=== PATIENT | female | born 1955 | race Caucasian/White ===

== ENCOUNTER 2017-02-26 05:20 | Inpatient (IN) | payer OTHER ==
[2017-02-13 13:30] VITALS: BMI 33.0
--- NOTE | 2017-02-13 14:21 | PAT Medication Instructions ---
Service Date February 13, 2017. Current Home Medication List Aspirin (Aspirin Ec), 81 MG PO QAM Atorvastatin (Lipitor), 40 MG PO QAM Cyanocobalamin (Cyanocobalamin), MONTHLY Ergocalciferol (Vitamin D 72045 Unit), 50,000 UNIT PO 2XWK Gabapentin (Neurontin), 300 MG PO TID Lansoprazole (Prevacid), 15 MG PO QAM Lisinopril (Zestril), 40 MG PO QAM Magnesium Gluconate (Magnesium Gluconate), 1 TAB PO BIDM Meloxicam (Meloxicam), 1 TAB PO QAM Metformin Ext Rel (Glucophage Ext Rel), 1 TAB PO BID Metoprolol Succinate (Toprol Xl), 50 MG PO QAM Medication Instructions For Your Scheduled Surgery Cyanocobalamin (Cyanocobalamin), MONTHLY (continue as usual) - Hold the following medications 7 days prior to surgery per surgeon instructions: Meloxicam (Meloxicam), 1 TAB PO QAM Aspirin (Aspirin Ec), 81 MG PO QAM - Hold the following medications 48 hours prior to surgery: Metformin Ext Rel (Glucophage Ext Rel), 1 TAB PO BID - Hold the following medications the morning of surgery: Magnesium Gluconate (Magnesium Gluconate), 1 TAB PO BID Lisinopril (Zestril), 40 MG PO QAM Ergocalciferol (Vitamin D 59316 Unit), 50,000 UNIT PO 2XWK - Take the following medications the morning of surgery with a sip of water: Metoprolol Succinate (Toprol Xl), 50 MG PO QAM Gabapentin (Neurontin), 300 MG PO TID Lansoprazole (Prevacid), 15 MG PO QAM Atorvastatin (Lipitor), 40 MG PO QAM - Take the following medications as scheduled the night before surgery: Magnesium Gluconate (Magnesium Gluconate), 1 TAB PO BID Gabapentin (Neurontin), 300 MG PO TID If you have any questions please call us at [phone] or [phone] ( [place]) or [phone]
--- NOTE | 2017-02-13 15:00 | DIAGNOSTIC IMAGING REPORT ---
CHEST PREADMISSION(PA/LAT) HISTORY: Preop. COMPARISON: None. FINDINGS: The lungs are clear. The heart is top normal in size. S-shaped scoliosis of the thoracolumbar spine. There is a single left-sided thoracolumbar spinal troy. No pleural effusions. No pneumothorax. IMPRESSION: No acute process. Electronically signed by: Juancarlos Shcultz M.D. 02/13/2017 2:59 PM Dictated Date/Time: 02/13/2017 2:58 PM
[2017-02-13 15:38] LABS: BASO % 0.8 %; BASO ABS # 0.07 K/uL (0-0.2); COMPLETE YES; EOS % 7.8 %; HEMATOCRIT 37.6 % (37-47); IG% 0.7 %; LYMPH % 22.9 %; LYMPH ABS # 1.96 K/uL (1.2-3.4); MEAN CELL VOLUME 94.5 fL (80-100); MEAN CORPUSCULAR HEMOGLOBIN 32.2 pg (25-34); MONO % 4.9 %; NEUT % 62.9 %; PLATELET COUNT 259 K/uL (130-400); RED BLOOD COUNT 3.98 M/uL (4.2-5.4); WHITE BLOOD COUNT 8.57 K/uL (4.8-10.8)
[2017-02-13 15:41] LABS: MANUAL MICROSCOPIC REQUIRED? NO; REVIEW REQ? NO; URINE APPEARANCE CLEAR (CLEAR); URINE BILIRUBIN NEG (NEG); URINE COLOR YELLOW; URINE NITRITE NEG (NEG); URINE SPECIFIC GRAVITY 1.021 (1.000-1.030); UROBILINOGEN NEG (NEG)
[2017-02-13 16:28] LABS: CALCIUM 9.3 mg/dl (8.5-10.1); CREATININE 0.71 mg/dl (0.60-1.20); POTASSIUM 4.7 mmol/L (3.5-5.1)
[~2017-02-26] VITALS: Ht 160 cm; Wt 85.7 kg
[2017-02-26] VITALS (20 sets, daily range): BP systolic 126–165; BP diastolic 72–94; PULSE 75–97; TEMP 36.1–36.8; O2SAT 93–100; Ht 160 cm; Wt 85.7 kg
[~2017-02-26 05:20] MED LIST: ASPI81TA28 PO; ATOR-24 PO; CYNI1000; ERGO500037 PO; GABA-113 PO; LANS15CA6 PO; LISI40TA PO; MAGN500T3 PO; MELO15TA4 PO; METFTAB PO; METO-217 PO
[2017-02-26] MEDS ORDERED: CEFAZOLIN 2000 MG/60 ML D5W IV SCH (06:00)
[2017-02-26] MEDS ORDERED: LACTATED RINGER'S 1000ML 1,000 ML IV SCH (06:00)
[2017-02-26] MEDS ORDERED: CeleBREX 200 MG CAP PO SCH (06:00)
[2017-02-26] MEDS ORDERED: PREGABALIN 75 MG CAP PO SCH (06:00)
[2017-02-26] MEDS ORDERED: MIDAZOLAM HCL 1 MG/ML 2ML VIAL ONE (06:36)
[2017-02-26] MEDS ORDERED: FENTANYL CITRATE INJ 50 MCG/1 ML 2 ML VIAL ONE ×3 (06:36→08:09)
[2017-02-26] MEDS ORDERED: THROMBIN 5000 UNITS KIT ONE (06:54)
[2017-02-26] MEDS ORDERED: BACITRACIN 50000 UNIT VIAL ONE (06:54)
--- NOTE | 2017-02-26 07:27 | History and Physical ---
History & Physical Date February 26, 2017. Chief Complaint neck and R arm pain History of Present Illness The patient is a 62 year old female with complaints of above that are chronic who also reports weakness and numbness of the right hand. Rarely has L arm symptoms. She has failed to respond to extensive non op management. Her MRI shows foraminal stenosis and DDD greatest at C5-6 and 6-7. She has limited cognitive function and is assisted in decisions by family caregiver who has accompanied her to visits. Past Medical/Surgical History neck pain COPD diabetes type II Guy's Breast CA s/p mastectomy Hx of scoliosis fusion in youth HTN learning disability Carotid stenosis tonsillectomy Hyster hernia repair osteoporosis Additional History Hepatic Disease: No Endocrine Disorder: No Kidney Disease: No Hypertension: Yes Heart Disease: Yes (cleared by cardiology) Bleeding Tendencies: No Infectious Diseases: No Allergies Uncoded Allergies: ENDIVE (Allergy, Severe, SWELLING OF EYES, 02/13/17) Home Medications Scheduled Aspirin (Aspirin Ec), 81 MG PO QAM Atorvastatin (Lipitor), 40 MG PO QAM Cyanocobalamin (Cyanocobalamin), MONTHLY Ergocalciferol (Vitamin D 01385 Unit), 50,000 UNIT PO 2XWK Gabapentin (Neurontin), 300 MG PO TID Lansoprazole (Prevacid), 15 MG PO QAM Lisinopril (Zestril), 40 MG PO QAM Magnesium Gluconate (Magnesium Gluconate), 1 TAB PO BIDM Meloxicam (Meloxicam), 1 TAB PO QAM Metformin Ext Rel (Glucophage Ext Rel), 1 TAB PO BID Metoprolol Succinate (Toprol Xl), 50 MG PO QAM Physical Examination Skin: warm/dry Eyes: normal inspection ENT: normal ENT inspection Head: normocephalic, atraumatic Neck: supple, no adenopathy, trachea midline Respiratory/Chest: lungs clear, no respiratory distress Cardiovascular: regular rate, rhythm Extremities: normal inspection, normal range of motion Neurologic/Psych: no motor/sensory deficits (except for slight weakness in press box custodian and wrist extension on right and decreased right hand sensation to light touch), alert, normal reflexes, oriented x 3 Diagnosis Cervical stenosis C5-7 Plan of Treatment C5-7 ACDF
[2017-02-26] MEDS ORDERED: HYDROmorphone INJ 2 MG/ML SYR/VIAL IV PRN (07:45)
[2017-02-26] MEDS ORDERED: PHENYLEPHRINE 100MCG/ML 5ML SYR IV PRN (07:45)
[2017-02-26] MEDS ORDERED: ONDANSETRON INJ 2 MG/ML 2 ML VIAL IV PRN ×2 (07:45→09:45)
[2017-02-26] MEDS ORDERED: EpHEDrine SULFATE INJ 50 MG/ML AMP IV PRN (07:45)
[2017-02-26] MEDS ORDERED: ATROPINE SULFATE 0.1 MG/ML 5ML SYR IV PRN (07:45)
[2017-02-26] MEDS ORDERED: HYDROmorphone INJ 2 MG/ML SYR/VIAL ONE (07:55)
[2017-02-26] MEDS ORDERED: ROCURONIUM BROMIDE 10 MG/ML 5 ML VIAL ONE (08:10)
[2017-02-26] MEDS ORDERED: PROPOFOL IV EMULSION 10 MG/ML 20 ML VIAL IV ONE (08:10)
[2017-02-26] MEDS ORDERED: PHENYLEPHRINE 100MCG/ML 5ML SYR ONE (08:10)
[2017-02-26] MEDS ORDERED: DEXAMETHASONE SOD INJ 4 MG/ML VIAL ONE (08:10)
[2017-02-26] MEDS ORDERED: ONDANSETRON INJ 2 MG/ML 2 ML VIAL ONE ×2 (08:10→09:25)
[2017-02-26] MEDS ORDERED: LIDOCAINE HCL 2% 2 ML VIAL (20MG/ML) ONE (08:10)
[2017-02-26] MEDS ORDERED: LABETALOL HCL IV 5 MG/ML 20ML IV ONE (08:23)
[2017-02-26] MEDS ORDERED: NEOSTIGMINE METHYLSULFATE 1 MG/ML 10ML VIAL ONE (09:25)
[2017-02-26] MEDS ORDERED: GLYCOPYRROLATE INJ 0.2 MG/ML VIAL ONE (09:25)
--- NOTE | 2017-02-26 09:31 | DIAGNOSTIC IMAGING REPORT ---
Cervical SPINE, INTRAOPERATIVE FLUOROSCOPY HISTORY: C5-C7 discectomy and fusion. FLUOROSCOPY TIME: 12 seconds. FINDINGS: Intraoperative fluoroscopy was provided for the cervical spine. 3 fluoroscopic spot images were obtained. Anterior cervical discectomy and fusion at C5-C6 and C6-C7. IMPRESSION: Fluoroscopy provided for a ACDF C5-C7. Electronically signed by: Juancarlos Schultz M.D. 02/26/2017 9:30 AM Dictated Date/Time: 02/26/2017 9:29 AM
--- NOTE | 2017-02-26 09:40 | [facility] Post Operative Brief Note ---
Immediate Operative Summary Operative Date February 26, 2017. Pre-Operative Diagnosis Spinal Stenosis Post-Operative Diagnosis Same as preop Procedure(s) Performed C5-7 Anterior Cervical Discectomy and Fusion, Use of LDR Surgeon Dr. Jerry Larsen Nurse Practitioner Manager Surgeon(s) Debora Lucero PAC Estimated Blood Loss 20ml Findings dict Specimens None
[2017-02-26] MEDS ORDERED: LORAZEPAM 0.5 MG TAB PO PRN (09:45)
[2017-02-26] MEDS ORDERED: RACEPINEPHRINE 2.25% NEBU SOLN 0.5 ML VIAL INH PRN (09:45)
[2017-02-26] MEDS ORDERED: HYDROmorphone INJ 1 MG/ML SYR IV PRN (09:45)
[2017-02-26] MEDS ORDERED: ACETAMINOPHEN IV 1,000 MG in EMPTY BAG 0 ML IV PRN (09:45)
[2017-02-26] MEDS ORDERED: NALOXONE HCL 0.4 MG/1 ML VIAL/CARP IV PRN (09:45)
[2017-02-26] MEDS ORDERED: DEXAMETHASONE INJ 8 MG in SYRINGE 0 ML IV PRN (09:45)
[2017-02-26] MEDS ORDERED: LORAZEPAM INJ 0.5 MG in SYRINGE 0.75 ML IV PRN (09:45)
--- NOTE | 2017-02-26 10:29 | Anesthesiology Progress Note ---
Anesthesia Post Op Note Date & Time February 26, 2017 at 10:28 Vital Signs Pain Intensity: 4 Vital Signs Past 12 Hours Date Time Temp Pulse Resp B/P Pulse Ox O2 Delivery O2 Flow Rate FiO2 02/26/17 10:20 36.3 91 15 140/71 94 Nasal Cannula 4 02/26/17 10:10 89 16 170/71 95 Nasal Cannula 4 02/26/17 10:00 85 16 169/68 94 Nasal Cannula 4 02/26/17 09:50 78 16 167/81 94 Nasal Cannula 4 02/26/17 09:40 79 16 169/73 98 Mask 10 02/26/17 09:30 84 16 170/88 98 Mask 10 02/26/17 09:24 36.5 95 16 174/87 97 Mask 10 02/26/17 05:56 36.8 97 22 128/84 98 Room Air Notes Mental Status: alert / awake / arousable, participated in evaluation Pt Amnestic to Procedure: Yes Nausea / Vomiting: adequately controlled Pain: adequately controlled Airway Patency, RR, SpO2: stable & adequate BP & HR: stable & adequate Hydration State: stable & adequate Anesthetic Complications: no major complications apparent No airway edema and no apparent bleeding at time of discharge.
--- NOTE | 2017-02-26 12:04 | Medical Consult ---
Consultation Date of Consultation: February 26, 2017. Attending Physician: Noel Larsen M.D. Reason for Consultation: Medical Management History of Present Illness 62 y/o F who was admitted this morning after undergoing C5-C7 decompression/ fusion with Dr. Larsen. Pt is still a bit groggy from anesthesia and states she doesn't feel well due to this. She is nauseated, no emesis though. She feels like she cannot get a good breath due to her incision site. Pt's last dose of metformin was yesterday AM due to her surgery today. She is not on insulin, although a friend with her states that her PCP has recently increased her metformin. Pt usually runs around 150-180 BS per her friend. Pt denies fever, chest pain, abd pain, c/d, LE pain or swelling. ROS as noted above, otherwise neg. Past Medical/Surgical History DM COPD HTN B12 deficiency HLD Guy's esophagus Carotid stenosis Hx of breast ca s/p mastectomy Osteoporosis Social History Smoking Status: Never Smoker Alcohol Use: none Drug Use: none Allergies Uncoded Allergies: ENDIVE (Allergy, Severe, SWELLING OF EYES, 02/13/17) Current Inpatient Medications Current Inpatient Medications Medications (Trade) Dose Ordered Sig/Meeta Route Start Time Stop Time Status Last Admin Dose Admin Lactated Ringer's 1,000 ml @ 15 mls/hr Q24H IV 02/26/17 06:00 02/27/17 05:59 02/26/17 06:14 15 MLS/HR Cefazolin Sodium (Ancef 2000mg/60 ml D5W) 60 ml @ 100 mls/hr PREOP IV 02/26/17 06:00 02/26/17 18:00 02/26/17 07:28 100 MLS/HR Celecoxib (CeleBREX CAP) 200 mg PREOP PO 02/26/17 06:00 02/26/17 18:00 02/26/17 06:12 200 MG Pregabalin (Lyrica Cap) 75 mg PREOP PO 02/26/17 06:00 02/26/17 18:00 02/26/17 06:12 75 MG Hydromorphone HCl (Dilaudid Inj) 0.5 mg Q5M PRN IV 02/26/17 07:45 02/26/17 12:45 Ondansetron HCl (Zofran Inj) 4 mg ONE PRN IV 02/26/17 07:45 02/26/17 12:45 Ephedrine Sulfate (EpHEDrine SULFATE INJ) 5 mg Q5M PRN IV 02/26/17 07:45 02/26/17 12:45 Atropine Sulfate (Atropine Sulfate 0.1MG/Ml Inj) 0.5 mg Q1M PRN IV 02/26/17 07:45 02/26/17 12:45 Phenylephrine HCl (Mack-Synephrine 500MCG/5ML Syr) 100 mcg Q5M PRN IV 02/26/17 07:45 02/26/17 12:45 Aspirin (Ecotrin Tab) 81 mg QAM PO 02/27/17 09:00 03/29/17 08:59 UNV Atorvastatin Calcium (Lipitor Tab) 40 mg QAM PO 02/27/17 09:00 03/29/17 08:59 UNV Gabapentin (Neurontin Cap) 300 mg TID PO 02/26/17 14:00 03/28/17 13:59 UNV Lisinopril (Zestril Tab) 40 mg QAM PO 02/27/17 09:00 03/29/17 08:59 UNV Metoprolol Succinate (Toprol Xl Tab) 50 mg QAM PO 02/27/17 09:00 03/29/17 08:59 UNV Pantoprazole Sodium (Protonix Tab) 40 mg QAM PO 02/27/17 09:00 03/29/17 08:59 UNV Racepinephrine 0.5 ml 0.5 ml ONE PRN INH 02/26/17 09:45 02/26/17 23:59 Acetaminophen/ Empty Bag (Ofirmev Iv/ Empty Iv Bag 100ml) 100 ml @ 400 mls/hr Q8H PRN IV 02/26/17 09:45 03/28/17 09:44 Hydromorphone HCl (Dilaudid Inj) 1 mg Q3H PRN IV 02/26/17 09:45 03/12/17 09:44 Ondansetron HCl 4 mg 4 mg Q6 PRN IV 02/26/17 09:45 03/28/17 09:44 Cefazolin Sodium/ Dextrose (Ancef Iv/D5 50ml) 55 ml @ 100 mls/hr Q8H IV 02/26/17 16:00 02/27/17 08:32 UNV Lorazepam 0.5 mg 0.5 mg Q8H PRN PO 02/26/17 09:45 03/28/17 09:44 Lorazepam 0.5 mg/ Syringe 1 ml @ 1 mls/min Q8H PRN IV 02/26/17 09:45 03/28/17 09:44 Sodium Chloride (Nss 1000ml) 1,000 ml @ 80 mls/hr [id number] IV 02/26/17 09:40 02/27/17 09:39 UNV Oxycodone HCl 5mg for pain scale 4-6 1... Q4H PRN PO 02/26/17 09:45 03/12/17 09:44 Dexamethasone Sodium Phosphate/ Syringe (Decadron Inj/ Syringe) 2 ml @ 1 mls/min ONE PRN IV 02/26/17 09:45 02/26/17 23:59 Naloxone HCl (Narcan Inj) 0.1 mg Q5M PRN IV 02/26/17 09:45 03/28/17 09:44 Physical Exam Date Time Temp Pulse Resp B/P Pulse Ox O2 Delivery O2 Flow Rate FiO2 02/26/17 11:30 36.3 92 16 162/87 97 Nasal Cannula 2.0 02/26/17 11:30 36.3 16 162/87 97 Nasal Cannula 2.0 02/26/17 11:30 92 16 162/87 97 2.0 02/26/17 11:00 36.5 81 16 126/82 95 Nasal Cannula 4.0 Humidified Oxygen 02/26/17 11:00 Nasal Cannula 4.0 02/26/17 11:00 Nasal Cannula 4.0 Humidified Oxygen 02/26/17 10:40 36.3 93 16 168/82 95 Nasal Cannula 4 02/26/17 10:30 36.3 85 15 165/73 94 Nasal Cannula 4 02/26/17 10:20 36.3 91 15 140/71 94 Nasal Cannula 4 02/26/17 10:10 89 16 170/71 95 Nasal Cannula 4 02/26/17 10:00 85 16 169/68 94 Nasal Cannula 4 02/26/17 09:50 78 16 167/81 94 Nasal Cannula 4 02/26/17 09:40 79 16 169/73 98 Mask 10 02/26/17 09:30 84 16 170/88 98 Mask 10 02/26/17 09:24 36.5 95 16 174/87 97 Mask 10 02/26/17 05:56 36.8 97 22 128/84 98 Room Air General Appearance: WD/WN, no apparent distress Head: normocephalic, atraumatic Respiratory/Chest: normal breath sounds, no respiratory distress Cardiovascular: regular rate, rhythm, no edema Abdomen/GI: non tender, soft Extremities/Musculoskelatal: no calf tenderness, no pedal edema Neurologic/Psych: alert (but groggy), + pertinent finding (answers all questions appropriately) Skin: normal color, warm/dry Laboratory Results Last 24 Hours Test 02/26/17 06:11 02/26/17 09:26 02/26/17 11:35 Bedside Glucose 141 mg/dl 179 mg/dl 280 mg/dl Assessment & Plan 62 y/o F who was admitted on 02/26 after undergoing C5-C7 decompression/fusion with Dr. Larsen. Neck pain: fusion as above Diet, DVT proph as per ortho DM: BS elevated to 260 post-op Likely related to holding metformin for OR today Pt also received decadron intra-op Start on SSI PRN A1c pending HTN: stable, continue home meds COPD: stable, continue home meds Hyperlipidemia: continue home meds
[2017-02-26] MEDS ORDERED: GLUCOSE 10 TABS/TUBE PO PRN (12:15)
[2017-02-26] MEDS ORDERED: DEXTROSE 50% 50 ML SYR IV PRN (12:15)
[2017-02-26] MEDS ORDERED: GLUCAGON FOR INJ 1 MG VIAL SQ PRN (12:15)
[2017-02-26] MEDS ORDERED: GLUCOSE 40% GEL 15 GM TUBE PO PRN (12:15)
[2017-02-26] MEDS: SODIUM CHLORIDE 0.9% 1000ML 1,000 ML IV SCH ×2 (13:11→21:33)
[2017-02-26] MEDS: GABAPENTIN 300 MG CAP PO SCH ×2 (13:12→21:33)
[2017-02-26] MEDS: INSULIN ASPART 100 UNITS/ML 3 ML PEN SC SCH ×3 (13:17→21:41)
[2017-02-26] MEDS: OXYCODONE HCL IR 5 MG TAB (IMMEDIATE RELEASE) PO PRN ×2 (13:24→17:57)
[2017-02-26] MEDS: CEFAZOLIN IV 1,000 MG in DEXTROSE 5% 50ML 50 ML IV SCH (15:33)
[2017-02-26] MEDS ORDERED: MAGNESIUM GLUCONATE PO SCH (17:45)
[2017-02-27] VITALS (18 sets, daily range): BP systolic 116–159; BP diastolic 69–82; PULSE 72–90; TEMP 36.5–37.1; O2SAT 91–99
[2017-02-27] MEDS: CEFAZOLIN IV 1,000 MG in DEXTROSE 5% 50ML 50 ML IV SCH ×2 (00:22→08:34)
[2017-02-27 06:45] LABS: ESTIMATED AVERAGE GLUCOSE 143 mg/dl; HA1C FLAG Normal (Normal)
[2017-02-27] MEDS: INSULIN ASPART 100 UNITS/ML 3 ML PEN SC SCH ×4 (08:33→21:41)
[2017-02-27] MEDS: GABAPENTIN 300 MG CAP PO SCH ×3 (08:35→21:41)
[2017-02-27] MEDS: LISINOPRIL 40 MG TAB PO SCH (08:35)
[2017-02-27] MEDS: METOPROLOL SUCC 50MG EXT REL TAB PO SCH (08:36)
[2017-02-27] MEDS: ASPIRIN 81 MG ECTAB PO SCH (08:36)
[2017-02-27] MEDS: PANTOprazole SOD 40 MG TAB PO SCH (08:36)
[2017-02-27] MEDS: ATORVASTATIN 40 MG TAB PO SCH (08:37)
--- NOTE | 2017-02-27 09:26 | Orthopedic Progress Note ---
Orthopedic Progress Note Date of Service February 27, 2017. Subjective Post OP Day: 1 Reports: feeling well, pain controlled w PO medications, Denies: SOB, calf pain , chest pain, complaints, light headedness, nausea / vomiting, using CONSUMER INSIGHT ANALYST Additional Notes: mild sore throat Objective calves soft nontender, N/V intact Date Time Temp Pulse Resp B/P Pulse Ox O2 Delivery O2 Flow Rate FiO2 02/27/17 08:00 Room Air 02/27/17 07:53 36.5 77 16 159/82 96 Room Air 02/27/17 07:17 36.5 77 16 159/82 96 Room Air 02/27/17 07:10 80 16 99 Nasal Cannula 3.0 02/27/17 06:00 36.6 84 16 155/81 91 Nasal Cannula 2.0 Humidified Oxygen 02/27/17 03:56 36.5 77 14 159/82 98 Nasal Cannula 2.0 Humidified Oxygen 02/27/17 03:12 85 16 98 Nasal Cannula 3.0 02/27/17 02:00 36.6 86 16 134/79 97 Nasal Cannula 2.0 Humidified Oxygen 02/27/17 00:00 36.7 80 18 130/72 97 Nasal Cannula 2.0 Humidified Oxygen 02/26/17 23:09 88 16 98 Nasal Cannula 3.0 02/26/17 21:30 36.8 91 16 155/85 96 Nasal Cannula 2.0 Humidified Oxygen 02/26/17 19:35 86 16 94 Room Air 02/26/17 19:30 36.7 95 16 153/76 95 Nasal Cannula Humidified Oxygen 02/26/17 19:25 Nasal Cannula 2.0 Humidified Oxygen 02/26/17 18:00 36.8 83 16 165/73 97 Nasal Cannula 2.0 02/26/17 18:00 36.8 83 16 165/73 97 Nasal Cannula 2.0 02/26/17 15:46 36.1 94 16 165/89 98 Nasal Cannula 2.0 02/26/17 15:44 36.1 94 16 165/89 98 Nasal Cannula 2.0 02/26/17 15:36 90 18 99 Nasal Cannula 4.0 02/26/17 15:04 36.7 94 16 147/80 100 Nasal Cannula 4.0 02/26/17 14:06 Nasal Cannula 2.0 02/26/17 14:06 36.4 89 16 164/88 99 Nasal Cannula 4.0 Humidified Oxygen 02/26/17 14:00 36.4 89 16 164/88 99 Nasal Cannula 2.0 Humidified Oxygen 02/26/17 13:01 87 16 162/94 98 2.0 02/26/17 13:00 36.4 87 16 162/94 98 Nasal Cannula 2.0 02/26/17 12:45 88 18 93 Nasal Cannula 02/26/17 12:05 36.4 75 16 138/84 96 Nasal Cannula 2.0 02/26/17 12:00 36.4 75 16 138/84 96 Nasal Cannula 2.0 02/26/17 11:30 36.3 92 16 162/87 97 Nasal Cannula 2.0 02/26/17 11:30 36.3 16 162/87 97 Nasal Cannula 2.0 02/26/17 11:30 92 16 162/87 97 2.0 02/26/17 11:00 36.5 81 16 126/82 95 Nasal Cannula 4.0 Humidified Oxygen 02/26/17 11:00 Nasal Cannula 4.0 02/26/17 11:00 Nasal Cannula 4.0 Humidified Oxygen 02/26/17 10:40 36.3 93 16 168/82 95 Nasal Cannula 4 02/26/17 10:30 36.3 85 15 165/73 94 Nasal Cannula 4 02/26/17 10:20 36.3 91 15 140/71 94 Nasal Cannula 4 02/26/17 10:10 89 16 170/71 95 Nasal Cannula 4 02/26/17 10:00 85 16 169/68 94 Nasal Cannula 4 02/26/17 09:50 78 16 167/81 94 Nasal Cannula 4 02/26/17 09:40 79 16 169/73 98 Mask 10 02/26/17 09:30 84 16 170/88 98 Mask 10 Assessment & Plan Assessment: s/p ACDF Plan: doing well, unsure if steady enough to go home. drain d/c'd accidentally. no neck swelling Discharge Planning Discharge Planning: home Pain Management: Oxy IR DVT Prophylaxis: SCDs
[2017-02-27] MEDS ORDERED: METFORMIN HCL 500 MG TABCR PO ONE (09:31)
[2017-02-27] MEDS ORDERED: RXC5 PO (09:32)
--- NOTE | 2017-02-27 09:33 | Discharge Instructions ---
Discharge Instructions Date of Service February 27, 2017. Admission Reason for Admission: Cervical Spinal Stenosis Discharge Discharge Diagnosis / Problem: same Discharge Goals Goal(s): Decrease discomfort Activity Recommendations Activity Limitations: per Instructions/Follow-up section . Instructions / Follow-Up Instructions / Follow-Up ACTIVITY RECOMMENDATIONS: SELF CARE INSTRUCTIONS AFTER CERVICAL FUSIONS 1. No smoking. Smoking drastically decreases the chance of a solid fusion. 2. No bending, lifting more than 5 pounds, or twisting (roll like a log when turning in bed). 3. You may shower 3 days after surgery. Thoroughly dry wound. Do not soak in the tub. 4. Cervical collar: Must be worn at all times including sleeping. You may remove the brace only to bath, eat and if you are sitting in a recliner. 5. Please walk as much as you can for exercise. Gradually increase the distance that you walk as your endurance increases. SPECIAL CARE INSTRUCTIONS: VERY IMPORTANT TO READ AND REVIEW A. Do not take any anti-inflammatory medications (i.e. Indocin, Advil, Aspirin, Naprosyn, Aleve, Motrin, etc.) as these may inhibit the chance of a solid fusion. Tylenol is okay to take. B. Your surgical incision has been closed with a cosmetic suture under the skin that will dissolve in about 6 weeks. In 14 days, you can use a pair of clean scissors and cut the suture that is left outside of the skin at the ends of your incision. C. Complications are uncommon, but please contact us if you have any signs or symptoms of: 1. wound infection (fever higher than 102.5 degrees F, redness, separation of wound, drainage, or increasing pain from the incision) 2. blood clots in legs (pain, swelling, redness and warmth in legs) 3. urinary tract infection (fever higher than 102.5 degrees, burning upon urination or increased frequency of urination) 4. nerve problems (inability to walk on your toes or heels, numbness, loss of bowel or bladder control) 5. any other symptoms that concern you. D. Please call the office at if you have any concerns or questions about your operation or recovery. MANAGING PAIN AFTER SPINAL SURGERY 1. Narcotic medication is intended for short-term use and will be provided for surgical pain. Surgical pain usually lasts for a period of 4-6 weeks. Narcotic medication includes Percocet, Vicodin, Darvocet, Tylenol #3 or Lortab. 2. Longer-term pain is more appropriately treated with non-narcotic medication such as Tylenol ES. 3. Muscle spasm is not appropriately treated with narcotics. Muscle relaxers such as Soma, Flexeril or Skelaxin can be used along with Tylenol ES. 4. Remember that we all live with some "aches and pains". This is not unusual or uncommon after an injury or as we get older. 5. We will provide appropriate medication within the normal guidelines of their prescribed use. We will also be very cautious and aware of potential abuse and extended duration of patients' medication needs. 6. Please allow 2-3 days to process refills. Prescriptions will not be mailed but must be picked up at the office. FOLLOW UP VISIT: Keep your scheduled follow-up appointment. Any questions, please call the office at . Current Hospital Diet Patient's current hospital diet: Clear Liquid Diet, Diabetes Type 2 Diet Discharge Diet Recommended Diet: Diabetes Type 2 Diet Procedures Procedures Performed: C5-7 Anterior Cervical Discectomy and Fusion, Use of LDR Pending Studies Studies pending at discharge: no Laboratory Results Hemoglobin A1c Test 02/27/17 05:18 Range/Units Estimated Average Glucose 143 mg/dl Hemoglobin A1c 6.6 H 4.5-5.6 % Medical Emergencies . Who to Call and When: Medical Emergencies: If at any time you feel your situation is an emergency, please call 911 immediately. . Non-Emergent Contact Non-Emergency issues call your: Surgeon . "Provider Documentation" section prepared by Noel Larsen. . VTE Core Measure Inpt VTE Proph given/why not?: SCD's [place] Drug Monitoring Program Search Results: patient reviewed within database, no issues identified
--- NOTE | 2017-02-27 09:43 | Progress Note ---
Subjective Date of Service: February 27, 2017. Subjective Pt evaluation today including: conversation w/ patient, physical exam, lab review, review of inpatient medication list Pain: neck and back pain after surgery PO Intake: tolerating clears, advanced to regular per ortho Voiding: no voiding problems patient doing well overall, tolerating diet and pain controlled unsteady on feet today so planning on staying per ortho sugars better with Novolog, will resume Metformin BP up but attributed to pain, also, BP checked this AM prior to Lisinopril and Toprol + flatus, no BM Review of Systems Constitutional: + fatigue, + weakness Respiratory: + dyspnea on exertion (mild) Musculoskeletal: + joint pain (neck and back) All Other Systems: Reviewed and Negative Medications Current Inpatient Medications Medications (Trade) Dose Ordered Sig/Meeta Route Start Time Stop Time Status Last Admin Dose Admin Aspirin (Ecotrin Tab) 81 mg QAM PO 02/27/17 09:00 03/29/17 08:59 02/27/17 08:36 81 MG Atorvastatin Calcium (Lipitor Tab) 40 mg QAM PO 02/27/17 09:00 03/29/17 08:59 02/27/17 08:37 40 MG Gabapentin (Neurontin Cap) 300 mg TID PO 02/26/17 14:00 03/28/17 13:59 02/27/17 08:35 300 MG Lisinopril (Zestril Tab) 40 mg QAM PO 02/27/17 09:00 03/29/17 08:59 02/27/17 08:35 40 MG Metoprolol Succinate (Toprol Xl Tab) 50 mg QAM PO 02/27/17 09:00 03/29/17 08:59 02/27/17 08:36 50 MG Pantoprazole Sodium 40 mg 40 mg QAM PO 02/27/17 09:00 03/29/17 08:59 02/27/17 08:36 40 MG Acetaminophen/ Empty Bag (Ofirmev Iv/ Empty Iv Bag 100ml) 100 ml @ 400 mls/hr Q8H PRN IV 02/26/17 09:45 03/28/17 09:44 Hydromorphone HCl (Dilaudid Inj) 1 mg Q3H PRN IV 02/26/17 09:45 03/12/17 09:44 Ondansetron HCl (Zofran Inj) 4 mg Q6 PRN IV 02/26/17 09:45 03/28/17 09:44 Lorazepam 0.5 mg 0.5 mg Q8H PRN PO 02/26/17 09:45 03/28/17 09:44 Lorazepam 0.5 mg/ Syringe 1 ml @ 1 mls/min Q8H PRN IV 02/26/17 09:45 03/28/17 09:44 Sodium Chloride (Nss 1000ml) 1,000 ml @ 80 mls/hr [id number] IV 02/26/17 09:40 02/27/17 09:39 02/26/17 21:33 80 MLS/HR Oxycodone HCl (Roxicodone Immediate Rel Tab) 5mg for pain scale 4-6 1... Q4H PRN PO 02/26/17 09:45 03/12/17 09:44 02/26/17 17:57 10 MG Naloxone HCl (Narcan Inj) 0.1 mg Q5M PRN IV 02/26/17 09:45 03/28/17 09:44 Insulin Aspart (novoLOG ASPART) SLIDING SCALE G... ACHS SC 02/26/17 12:00 03/28/17 11:59 02/27/17 08:33 6 UNITS Glucose (Glucose 40% Gel) 15-30 GRAMS 15 GRAMS... UD PRN PO 02/26/17 12:15 03/28/17 12:14 Glucose (Glucose Chew Tab) 4-8 Tablets 4 Tabl... UD PRN PO 02/26/17 12:15 03/28/17 12:14 Dextrose (Dextrose 50% 50ML Syringe) 25-50ML OF 50% DW IV FOR... UD PRN IV 02/26/17 12:15 03/28/17 12:14 Glucagon (Glucagon Inj) 1 mg UD PRN SQ 02/26/17 12:15 03/28/17 12:14 Metformin HCl (Glucophage Extended Rel Tab) 500 mg BID PO 02/27/17 21:00 03/29/17 20:59 UNV Metformin HCl (Glucophage Extended Rel Tab) 500 mg 0931 ONCE PO 02/27/17 09:31 02/27/17 09:32 UNV Objective Vital Signs Date Time Temp Pulse Resp B/P Pulse Ox O2 Delivery O2 Flow Rate FiO2 02/27/17 08:00 Room Air 02/27/17 07:53 36.5 77 16 159/82 96 Room Air 02/27/17 07:17 36.5 77 16 159/82 96 Room Air 02/27/17 07:10 80 16 99 Nasal Cannula 3.0 02/27/17 06:00 36.6 84 16 155/81 91 Nasal Cannula 2.0 Humidified Oxygen 02/27/17 03:56 36.5 77 14 159/82 98 Nasal Cannula 2.0 Humidified Oxygen 02/27/17 03:12 85 16 98 Nasal Cannula 3.0 02/27/17 02:00 36.6 86 16 134/79 97 Nasal Cannula 2.0 Humidified Oxygen 02/27/17 00:00 36.7 80 18 130/72 97 Nasal Cannula 2.0 Humidified Oxygen 02/26/17 23:09 88 16 98 Nasal Cannula 3.0 02/26/17 21:30 36.8 91 16 155/85 96 Nasal Cannula 2.0 Humidified Oxygen 02/26/17 19:35 86 16 94 Room Air 02/26/17 19:30 36.7 95 16 153/76 95 Nasal Cannula Humidified Oxygen 02/26/17 19:25 Nasal Cannula 2.0 Humidified Oxygen 02/26/17 18:00 36.8 83 16 165/73 97 Nasal Cannula 2.0 02/26/17 18:00 36.8 83 16 165/73 97 Nasal Cannula 2.0 02/26/17 15:46 36.1 94 16 165/89 98 Nasal Cannula 2.0 02/26/17 15:44 36.1 94 16 165/89 98 Nasal Cannula 2.0 02/26/17 15:36 90 18 99 Nasal Cannula 4.0 02/26/17 15:04 36.7 94 16 147/80 100 Nasal Cannula 4.0 02/26/17 14:06 Nasal Cannula 2.0 02/26/17 14:06 36.4 89 16 164/88 99 Nasal Cannula 4.0 Humidified Oxygen 02/26/17 14:00 36.4 89 16 164/88 99 Nasal Cannula 2.0 Humidified Oxygen 02/26/17 13:01 87 16 162/94 98 2.0 02/26/17 13:00 36.4 87 16 162/94 98 Nasal Cannula 2.0 02/26/17 12:45 88 18 93 Nasal Cannula 02/26/17 12:05 36.4 75 16 138/84 96 Nasal Cannula 2.0 02/26/17 12:00 36.4 75 16 138/84 96 Nasal Cannula 2.0 02/26/17 11:30 36.3 92 16 162/87 97 Nasal Cannula 2.0 02/26/17 11:30 36.3 16 162/87 97 Nasal Cannula 2.0 02/26/17 11:30 92 16 162/87 97 2.0 02/26/17 11:00 36.5 81 16 126/82 95 Nasal Cannula 4.0 Humidified Oxygen 02/26/17 11:00 Nasal Cannula 4.0 02/26/17 11:00 Nasal Cannula 4.0 Humidified Oxygen 02/26/17 10:40 36.3 93 16 168/82 95 Nasal Cannula 4 02/26/17 10:30 36.3 85 15 165/73 94 Nasal Cannula 4 02/26/17 10:20 36.3 91 15 140/71 94 Nasal Cannula 4 02/26/17 10:10 89 16 170/71 95 Nasal Cannula 4 02/26/17 10:00 85 16 169/68 94 Nasal Cannula 4 02/26/17 09:50 78 16 167/81 94 Nasal Cannula 4 02/26/17 09:40 79 16 169/73 98 Mask 10 Physical Exam General Appearance: WD/WN, no apparent distress Eyes: normal inspection, EOMI, sclerae normal ENT: normal ENT inspection, hearing grossly normal, pharynx normal Neck: no adenopathy, no JVD, trachea midline, + pertinent finding (neck collar , immobilized) Respiratory/Chest: chest non-tender, lungs clear, normal breath sounds, no respiratory distress, no accessory muscle use Cardiovascular: regular rate, rhythm, no edema, no gallop, no JVD, no murmur Abdomen: normal bowel sounds, non tender, soft, no organomegaly Extremities: normal inspection, no pedal edema, no calf tenderness, normal capillary refill, pelvis stable 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 Larsen. Neck pain: fusion as above, management per Dr. Larsen Diet, DVT proph as per ortho encouraged deep breaths, ISB use, off oxygen currently keep today per ortho, possible d/c tomorrow DM: BS elevated to 260 post-op, better controlled now with Novolog and no further Decadron A1c 6.6 so typically well controlled resume Metformin this AM, diabetic diet HTN: slightly up but due to pain and BP taken prior to meds this AM, continue Lisinopril and Toprol eating and drinking well, will stop IV fluids COPD: stable, continue home meds Hyperlipidemia: continue home meds she is stable from medical standpoint, will sign off please continue all prior home medications on discharge, Metformin resumed today please call with any new acute issues
[2017-02-27] MEDS: OXYCODONE HCL IR 5 MG TAB (IMMEDIATE RELEASE) PO PRN ×2 (13:12→21:38)
[2017-02-27] MEDS: METFORMIN HCL 500 MG TABCR PO SCH (18:08)
[2017-02-28] VITALS (9 sets, daily range): BP systolic 99–121; BP diastolic 63–73; PULSE 78–88; TEMP 36.8–37.1; O2SAT 93–95
[2017-02-28] MEDS: LISINOPRIL 40 MG TAB PO SCH (08:38)
[2017-02-28] MEDS: ASPIRIN 81 MG ECTAB PO SCH (08:38)
[2017-02-28] MEDS: ATORVASTATIN 40 MG TAB PO SCH (08:38)
[2017-02-28] MEDS: GABAPENTIN 300 MG CAP PO SCH ×2 (08:38→13:11)
[2017-02-28] MEDS: METOPROLOL SUCC 50MG EXT REL TAB PO SCH (08:39)
[2017-02-28] MEDS: PANTOprazole SOD 40 MG TAB PO SCH (08:39)
[2017-02-28] MEDS: METFORMIN HCL 500 MG TABCR PO SCH (08:39)
[2017-02-28] MEDS: INSULIN ASPART 100 UNITS/ML 3 ML PEN SC SCH ×2 (08:41→13:11)
--- NOTE | 2017-03-05 09:28 | Discharge Summary ---
Orthopedic Discharge Summary Admission Date/Reason February 26, 2017 at 07:30 Cervical Spinal Stenosis. Discharge Date/Disposition Feb 28, 2017 Home Diagnosis Principal Diagnosis: same Procedure(s) Performed acdf c5-7 Medication Reconciliation New Medications: Oxycodone HCl (Oxycodone HCl) 5 Mg Tab 5-10 MG PO Q4H PRN for moderate-severe pain, #60 TAB Continued Medications: Aspirin (Aspirin Ec) 81 Mg Tab 81 MG PO QAM Atorvastatin (Lipitor) 40 Mg Tab 40 MG PO QAM, TAB Cyanocobalamin (Cyanocobalamin) 1,000 Mcg/Ml Inj MONTHLY LAST INJECTION 02/11/17 - DOES ONE INJECTION PER MONTH Ergocalciferol (Vitamin D 93564 Unit) 50,000 Unit Cap 19561 UNIT PO 2XWK, CAP Gabapentin (Neurontin) 300 Mg Cap 300 MG PO TID, CAP Lansoprazole (Prevacid) 15 Mg Capcr 15 MG PO QAM, CAP Lisinopril (Zestril) 40 Mg Tab 40 MG PO QAM, TAB Magnesium Gluconate (Magnesium Gluconate) 500 Mg Tab 1 TAB PO BIDM Metformin Ext Rel (Glucophage Ext Rel) 500 Mg Tab 1 TAB PO BID for 90 Days, #180 TAB 3 Refills Metoprolol Succinate (Toprol Xl) 50 Mg Tabcr 50 MG PO QAM, #30 TAB Discontinued Medications: Meloxicam (Meloxicam) 15 Mg Tab 1 TAB PO QAM Admission Physical Exam As per Admitting History & Physical. Hospital Course She was admitted for elective cervical fusion which was tolerated well. she was transferred to floor in stable condition, tolerated advance of her diet, had pain controlled and was discharged POD2 in stable condition. Discharge Instructions Please refer to the electronic Patient Visit Report (Discharge Instructions) for additional information.
--- NOTE | 2017-03-05 10:13 | OPERATIVE REPORT ---
DATE OF OPERATION: 02/26/2017 PREOPERATIVE DIAGNOSIS: Cervical disc herniation C5-C6, C6-C7. POSTOPERATIVE DIAGNOSIS: Same. PROCEDURE: 1. C5-C6 anterior cervical discectomy and fusion with application of PEEK intervertebral spacer with local autograft and DBM putty. 2. Anterior cervical discectomy and fusion with application of PEEK intervertebral spacer with local autograft and DBM putty C6-C7. 3. Anterior cervical instrumentation C5-C6, C6-C7 with LDR anterior cervical plates. SURGEON: Dr. Larsen. DIRECTOR OF RESOURCE DEVELOPMENT: Rj Lucero PA-C. Please note he participated in all portions of the procedure, was critical for performance of the procedure, participated in positioning, prepping, draping, retraction, and wound closure. ANESTHESIA: General endotracheal anesthesia. COMPLICATIONS: None. ESTIMATED BLOOD LOSS: Minimal. DESCRIPTION OF PROCEDURE: After identification of the patient and operative level, she was brought to the OR where she underwent induction of general anesthesia. She was then positioned supine on the [facility] OR table with the horseshoe headholder. The arms were tucked at sides and well padded. Shoulders were taped distally and the anterior neck was sterilely prepped and draped in usual fashion. Antibiotics were administered. Timeout was performed. Level was confirmed. Transverse skin incision made on the right side of neck at the level of the cricoid cartilage. I divided the platysma in line with the incision and performed routine anterior cervical exposure with blunt dissection of medial sternocleidomastoid. I identified the anterior osteophytes and presumptive disc spaces and then confirmed with fluoroscopy and a spinal needle. I then did a complete discectomy at C5-C6 and C6-C7, removing anterior osteophytes, all the disc material, and then took down the posterior osteophytes with a high speed sharonda at each level. I then removed the posterior annulus and the PLL at C5-C6 and C6-C7 with a sharonda and performed foraminotomies as necessary. After completion of decompression, I palpated the nerve roots were free at C5-C6 and C6-C7 bilaterally. I decorticated the endplates with a high speed sharonda. I determined graft size with trial sizers and inserted PEEK cages filled with local bone and DBM putty into the disc space at C5-C6 and C6-C7. After stable cage placement, I removed the [place] pins, applied bone wax to the holes, and then inserted LDR anterior cervical blade plates through the insertion handles at C5-C6 and C6-C7. I obtained final x-rays, confirmed hemostasis, irrigated with bacitracin solution and then closed over a small round drain. All sponge and needle counts were correct at the end of the case. I attest to the content of the Intraoperative Record and any orders documented therein. Any exception s are noted below.
== END 2017-02-28 14:20 | disposition home or self-care (01) | DRG 473 ==
LOC: ENRESERVDT → ENRESERVTM → C.ACU 05:20 → C.3E 07:30
PROVIDERS: ADMIT Orthopaedic Surgery Orthopaedic Surgery of the Spine; ATTEND Orthopaedic Surgery Orthopaedic Surgery of the Spine
PROC: 0RT30ZZ Resection of Cervical Vertebral Disc, Open Approach (ICD-10-PCS; principal; 2017-02-26 07:30)
PROC: 0RG20A0 Fusion of 2 or more Cervical Vertebral Joints with Interbody Fusion Device, Anterior Approach, Anterior Column, Open Approach (ICD-10-PCS; principal; 2017-02-26 07:30)
DX: M48.02 Spinal stenosis, cervical region (principal); M50.322 Other cervical disc degeneration at C5-C6 level; R11.0 Nausea; E11.65 Type 2 diabetes mellitus with hyperglycemia; T38.0X5A Adverse effect of glucocorticoids and synthetic analogues, initial encounter; Y92.230 Patient room in hospital as the place of occurrence of the external cause; J45.909 Unspecified asthma, uncomplicated; I10 Essential (primary) hypertension; E78.5 Hyperlipidemia, unspecified; K21.9 Gastro-esophageal reflux disease without esophagitis; K22.70 Barrett's esophagus without dysplasia; K27.9 Peptic ulcer, site unspecified, unspecified as acute or chronic, without hemorrhage or perforation; E53.8 Deficiency of other specified B group vitamins; M81.0 Age-related osteoporosis without current pathological fracture; F81.9 Developmental disorder of scholastic skills, unspecified; E66.9 Obesity, unspecified; Z68.33 Body mass index [BMI] 33.0-33.9, adult; Z79.82 Long term (current) use of aspirin; Z79.1 Long term (current) use of non-steroidal anti-inflammatories (NSAID); Z79.84 Long term (current) use of oral hypoglycemic drugs